=== PATIENT | female | born 1995 | race Caucasian/White ===

== ENCOUNTER 2017-11-13 13:14 | Emergency (ER) | payer OTHER ==
[~2017-11-13] VITALS: Ht 160 cm; Wt 116.0 kg
[2017-11-13] MEDS ORDERED: SERT25TA PO (13:44)
[2017-11-13 16:48] LABS: BASOPHILS % 0.5 % (0.0-2.0); EOSINOPHILS % 1.8 % (0.0-5.0); HEMATOCRIT. 26.8 % (36.0-48.0); HEMOGLOBIN. 8.2 g/dL (12.0-16.0); LYMPHOCYTES % 37.6 % (20.0-50.0); MEAN CORPUSCULAR HEMOGLOBIN 19.5 pg (28.0-32.0); MEAN CORPUSCULAR VOLUME 64.1 fL (81.0-99.0); MEAN PLATELET VOLUME 8.7 fl (7.4-10.4); MONOCYTES % 7.2 % (2.0-8.0); NEUTROPHILS % 52.9 % (40.0-76.0); PLATELET 268 x1000/uL (130-400); RED BLOOD CELL COUNT 4.18 mill/uL (4.2-5.4); RED CELL DISTRIBUTION WIDTH 19.4 % (11.6-14.6)
[2017-11-13 17:27] LABS: PLATELET ESTIMATE NORMAL
[2017-11-13 17:28] LABS: CHLORIDE 106 mEq/L (98-107)
[2017-11-13] MEDS ORDERED: ACETAMINOPHEN 500MG TABLET PO ONE (17:30)
[2017-11-13 17:44] LABS: CARBON DIOXIDE 25 mEq/L (21-32)
[2017-11-13 17:52] LABS: B-HCG QUANTITATIVE 1698 mIU/mL (<3)
[2017-11-13 19:13] VITALS: BP 132/70
== END 2017-11-13 20:34 | disposition home or self-care (01) ==
LOC: ER 14:20
DX: O99.011 Anemia complicating pregnancy, first trimester (principal); O26.891 Other specified pregnancy related conditions, first trimester; F32.9 Major depressive disorder, single episode, unspecified; F41.9 Anxiety disorder, unspecified; O99.331 Smoking (tobacco) complicating pregnancy, first trimester; O99.321 Drug use complicating pregnancy, first trimester; F12.10 Cannabis abuse, uncomplicated; Z98.890 Other specified postprocedural states; Z3A.01 Less than 8 weeks gestation of pregnancy
CPT/HCPCS: 36415; 80053; 81025; 84702; 85025; 86850; 86900; 99284